=== PATIENT | male | born 1950 | race Caucasian/White ===

== ENCOUNTER 2022-03-17 13:41 | Outpatient (REF) | payer MEDICARE, SELFPAY ==
[2022-03-17 15:44] LABS: Abs Immature Grans 0.03 10^3/uL (0.0-0.06); Absolute Basophil Count 0.07 10^3/uL (0.0-0.2); Absolute Eosinophil Count 0.04 10^3/uL (0.0-0.7); Absolute Lymphocyte Count 1.46 10^3/uL (1.2-3.4); Absolute Monocyte Count 0.51 10^3/uL (0.1-0.8); Absolute Neutrophil Count 6.78 10^3/uL (1.2-6.7); Basophils % 0.8; Eosinophils % 0.4; HCT 47.3 % (40.0-50.0); HGB 15.5 g/dL (13.5-17.5); Immature Grans % 0.3; Lymphocytes % 16.4; MCH 29.8 pg (27.0-33.0); MCHC 32.8 % (32.0-36.0); MCV 91 fL (80-95); MPV 10.8 fL (8.0-11.0); Monocytes % 5.7; Neutrophils % 76.4; Platelet Count 270 10^3/uL (130-400); RBC 5.21 10^6/uL (4.36-5.78); RDW 14.1 % (11.8-14.1); RDW-SD 46.8 fL; WBC 8.89 10^3/uL (4.4-10.8)
[2022-03-17 15:52] LABS: ALT 24 U/L (16-63); AST 30 U/L (15-37); Albumin 4.3 g/dL (3.4-5.0); Alkaline Phosphatase 80 U/L (46-116); Anion Gap 7.4 mmol/L (3-11); BUN 7 mg/dL (7-18); Bilirubin, Total 0.5 mg/dL (0.2-1.0); CO2 29.6 mmol/L (21.0-32.0); CREATININE 0.7 mg/dL (0.70-1.30); Calcium 9.5 mg/dL (8.5-10.1); Calculated LDL 124 mg/dL (<100); Chloride 98 mmol/L (98-107); Cholesterol 200 mg/dL (<200); Estimated GFR 97.29 (mL/min/1.73m2); Glucose 100 mg/dL (74-106); HDL Cholesterol 52 mg/dL (40-60); Potassium 3.8 mmol/L (3.5-5.1); Sodium 135 mmol/L (136-145); Total Protein 8.9 g/dL (6.4-8.2); Triglyceride 124 mg/dL (<150)
[2022-03-17 23:19] LABS: PSA, Screening 0.6 ng/mL (<=6.5)
== END 2022-03-17 13:42 | disposition home or self-care (01) ==
LOC: NCHCN 13:41
PROVIDERS: PCP Physician Assistant Medical; Visit Provider Physician Assistant Medical
DX: I10 Essential (primary) hypertension (principal); Z12.5 Encounter for screening for malignant neoplasm of prostate
CPT/HCPCS: 80053; 80061; 84153; 85025

== ENCOUNTER → 2022-04-10 00:56 | Outpatient (CLI) | payer MEDICARE, SELFPAY ==
--- NOTE | 2022-04-10 10:45 | DI.MRI_ITS ---
Exam(s) MR LUMBAR SPINE WO EXAM: MR LUMBAR SPINE WO CLINICAL HISTORY: LBP WO RADIATION, M54.59. TECHNIQUE: Multiplanar multisequence MRI of the Lumbar spine was performed. COMPARISON: No exams were available for comparison FINDINGS: Bones: The last intervertebral disc space is designated the L5/S1 level for the numbering purpose of this examination. There is a Schmorl's node in the inferior endplate of L2. Small endplate osteoph ytes are seen at several levels of the lumbar spine. Alignment is satisfactory. The signal character istics are unremarkable. Cord: The conus tip ends at the L1 level. It is of normal size and signal intensity. T12-L1: No disc herniations or bulges are present. No central spinal canal or neural foraminal stenos is. L1-2: No focal disc herniation or disc bulge is seen. There are hypertrophic changes seen of the lef t facet joint protruding into the spinal canal. There is minimal narrowing of the spinal canal as a result. No neural foraminal stenosis is seen. L2-3: There is a diffuse disc bulge. There are hypertrophic changes of the facets and ligamentum fla vum. Mild to moderate central spinal canal stenosis results. There is mild bilateral neural foramin al stenosis. L3-4: There is a diffuse disc bulge. There are hypertrophic changes of the facets and ligamentum fla vum. Mild to moderate central spinal canal stenosis is present. There is mild right and moderate le ft neural foraminal stenosis. L4-5: There is a diffuse disc bulge. There is a small central disc herniation. There are degenerati ve changes of the facets and hypertrophy of the ligamentum flavum. This results in mild central spin al canal stenosis. There is mild bilateral neural foraminal stenosis. L5-S1: No disc herniation or bulge is present. There are degenerative changes of the facets. No sig nificant central spinal canal stenosis is present. Moderately severe bilateral neural foraminal sten osis is present. Soft tissues: The visualized SI joints and sacrum are well maintained. The paraspinal soft tissues ar e unremarkable. IMPRESSION: Multilevel degenerative changes in the lumbar spine resulting in central spinal canal and neural fora rian stenosis as described above. DATA REPOSITORY:
== END ==
PROVIDERS: PCP Physician Assistant Medical; Visit Provider Physician Assistant Medical
DX: M47.816 Spondylosis without myelopathy or radiculopathy, lumbar region (principal); M48.061 Spinal stenosis, lumbar region without neurogenic claudication
CPT/HCPCS: 72148

== ENCOUNTER → 2022-04-22 13:27 | Outpatient (BNVA) | payer MEDICARE, SELFPAY | PROVIDERS: PCP Physician Assistant Medical; Referring Provider Physician Assistant Medical; Visit Provider Nurse Practitioner Adult Health | DX: G56.02 Carpal tunnel syndrome, left upper limb (principal) | CPT/HCPCS: 95908; 99203 ==

== ENCOUNTER → 2022-06-25 08:39 | Outpatient (BNVA) | payer MEDICARE, SELFPAY | PROVIDERS: PCP Physician Assistant Medical; Referring Provider Physician Assistant Medical; Visit Provider Student in an Organized Health Care Education/Training Program | DX: G56.02 Carpal tunnel syndrome, left upper limb (principal) | CPT/HCPCS: 99214 ==

== ENCOUNTER 2023-08-22 07:24 | Emergency (ER) | payer MEDICARE, SELFPAY ==
[2023-08-22 07:26] VITALS: BP 219/115; PULSE 92; RESP 16; TEMP 36.6; O2SAT 99
--- NOTE | 2023-08-22 07:30 | DI.RAD_ITS ---
Exam(s) XR KNEE LT 3V AP,LAT,KIRBY EXAM: XR KNEE LT 3V AP,LAT,KIRBY CLINICAL HISTORY: swelling and pain. TECHNIQUE: 2D digital imaging was performed. Three views. COMPARISON: No exams were available for comparison FINDINGS: BONES: No acute fracture is present. No bony destructive lesion is seen. JOINTS: The knee is normally aligned. A joint effusion is seen. The joint spaces are maintained. SOFT TISSUE: Vascular calcifications. Soft tissue edema. IMPRESSION: Joint effusion. No acute bony abnormality. DATA REPOSITORY: RADIATION DOSE DELIVERED:
--- NOTE | 2023-08-22 07:41 | W.ED.GENAD ---
Discharge Plan Disposition Patient Disposition: Home Condition: Stable Discharge Details Clinical Impression: Pain and swelling of left knee Primary Care Provider: Nolan Koroma ED Provider: Mahendra Silva Home Meds and New Rx's Prescriptions: New aspirin [Enteric Coated Aspirin] 81 mg tablet,delayed release (DR/EC) 81 mg PO DAILY Qty: 30 0RF prednisone 20 mg tablet 60 mg PO DAILY 5 Days Qty: 15 0RF Continued magnesium citrate 100 mg tablet 400 mg PO DAILY ginkgo biloba 40 mg tablet 125 mg PO DAILY Rx Instructions: give with meal/snack Kelp 0.15 mg tablet 150 mcg PO DAILY AM potassium chloride 20 mEq packet 50 meq PO DAILY zinc acetate 25 mg (zinc) capsule 50 mg PO DAILY Discharge Instructions Additional Instructions: Your x-ray shows you have degenerative joint disease. Your blood pressure was elevated while you were here, I would recommend having this rechecked with your primary care provider in 1 to 2 weeks. Take the prescriptions as prescribed You should have an ultrasound done to evaluate for potential blood clot If you feel more ill, have severe worsening pain or new symptoms such as chest pain or difficulty breathing return to the emergency department for reevaluation HPI General Mode of arrival: ambulatory. Date/Time Provider Initiated Documentation: 08/22/23 07:25. Limitations to Documentation: no limitations. Information obtained by: patient. History of Present Illness 72 year old M presents to the emergency department with the chief complaint of left knee swelling, described as moderate, Quality is described as aching, Patient extremity. Patient started experiencing this week(s) (1) and it has been constant. No relieving factors improve symptom(s), No exacerbating factors reported . Patient notes no other symptoms.; denies chest pain, fever/chills and shortness of breath. Related Data Home Medications Medication Instructions Recorded Confirmed ginkgo biloba 40 mg tablet 125 mg PO DAILY 04/22/22 08/22/23 magnesium citrate 100 mg tablet 400 mg PO DAILY 04/22/22 08/22/23 potassium chloride 20 mEq oral 50 meq PO DAILY 04/22/22 08/22/23 packet zinc acetate 25 mg (zinc) capsule 50 mg PO DAILY 04/22/22 08/22/23 iodine (kelp) 0.15 mg tablet (Kelp) 150 mcg PO DAILY AM 06/25/22 08/22/23 aspirin 81 mg tablet,delayed 81 mg PO DAILY #30 tabs 08/22/23 release (Enteric Coated Aspirin) prednisone 20 mg tablet 60 mg (3 x 20 mg) PO DAILY 5 days 08/22/23 #15 tabs Previous Rx's Medication Instructions Recorded aspirin 81 mg tablet,delayed 81 mg PO DAILY #30 tabs 08/22/23 release (Enteric Coated Aspirin) prednisone 20 mg tablet 60 mg (3 x 20 mg) PO DAILY 5 days 08/22/23 #15 tabs Allergies Allergy/AdvReac Type Severity Reaction Status Date / Time mold Allergy Severe Chest Unverified 08/22/23 07:32 closes, heavy mucus penicillin V AdvReac Severe Extensive Unverified 08/22/23 07:32 thrush egg AdvReac Intermediate Vomit, Unverified 08/22/23 07:32 diarrhea General Stated Complaint: Orthopedic MIRA: 3 Review of Systems All systems reviewed & are unremarkable except as noted in HPI and below Constitutional Constitutional: Denies chills, Denies fever(s) and Denies weakness Cardiovascular Cardiovascular: Denies chest pain and Denies dyspnea Respiratory Respiratory: Denies cough and Denies dyspnea Gastrointestinal Gastrointestinal: Denies abdominal pain, Denies nausea and Denies vomiting Integumentary/Breasts Skin/Breast: Denies rash Neurologic Neurologic: Denies weakness Exam Const General: no acute distress Orientation: alert [facility] Head: normal to inspection Ears: external ears normal General nose exam: external nose normal Mouth: moist mucous membranes Eyes General: appearance normal, both eyes and all related structures Neck Neck: normal visual inspection Resp Effort & Inspection: normal respiratory effort and able to speak in complete sentences Cardio Rate: regular rate Skin General skin exam: no rashes or lesions noted Neuro General: patient alert and patient oriented x3 Extrem General: full ROM and capillary refill normal Psych Mental Status: mental status grossly normal Course Vital Signs Vital signs: Vital Signs Temperature 36.6 C 08/22/23 07:26 Pulse 92 H 08/22/23 07:26 Respiratory Rate 16 08/22/23 07:26 Blood Pressure 219/115 H 08/22/23 07:26 Pulse Oximetry 99 08/22/23 07:26 Temperature 36.6 C 08/22/23 07:26 Temperature Source Temporal Artery Scan 08/22/23 07:26 Pulse 92 H 08/22/23 07:26 Respiratory Rate 16 08/22/23 07:26 Respiratory Effort Normal, Non-Labored 08/22/23 07:34 Blood Pressure 219/115 H 08/22/23 07:26 Blood Pressure Position Sitting 08/22/23 07:26 Pulse Oximetry 99 08/22/23 07:26 Pain Level 1 08/22/23 07:26 Medical Decision Making 72-year-old male who denies any chronic medical problems comes in with 1 week of left knee and leg swelling. He says he was working a week ago and was on his knees, does not remember any injuries or trauma at that time. Denies any fevers, chills, rash, difficulty breathing, chest pain. He is ambulatory on arrival, his left knee and calf are both swollen. He has full range of motion of the knee and foot and ankle, no erythema or warmth. He has intact distal sensation and pulses. I suspect osteoarthritis versus gout, exam is not consistent with septic joint but will send screening labs including CBC, CMP, CRP and ESR. Will also send D-dimer as we do not have ultrasound capability on Wednesday screen for DVT. Will obtain x-ray as well to evaluate for possible traumatic findings. Patient initially refused blood work but then did consent to having them done, no leukocytosis, ESR and CRP are elevated. D-dimer is significantly elevated. No ultrasound available today. I discussed results with patient, he has clinical decision-making capacity, I did recommend arthrocentesis though my suspicion for septic joint is low which he declined and understands the risks of missing a septic joint including worsening infection and possibly loss of limb. He is willing to accept these risks. I am also recommending that he start anticoagulation but he does not want any thing stronger than an aspirin. Discussed risks of not adequately treated DVT if he has 1 including worsening clot and potentially developing pulmonary embolus which can potentially lead to and permanent disability, and he still does not want to have Lovenox or Eliquis. He is willing to come back to have an ultrasound done so this order has been placed for him. I will also start him on a short course of a steroid for potential gout or other inflammatory arthritis. Return precautions given Differential Diagnosis Differential Diagnosis: Arthritis, gout, DVT Imaging Data Radiologic Study: Attestation: I personally reviewed and interpreted this imaging study as follows: Imaging: X-Ray Radiologist's impression: IMPRESSION: Mild degenerative change and joint effusion. Quality:[facility] Related Social Needs: No Data to Display PFSH All Active Problems (Updated 08/22/23 @ 08:28 by Mahendra Silva MD) Pain and swelling of left knee (Acute) Left carpal tunnel syndrome (Acute) Medical History Carpal tunnel syndrome Elevated blood pressure reading Hypertension Low back pain Social History Smoking/Tobacco Use Status: Former Tobacco Use Smoking risk assessment performed?: Yes Alcohol Intake: current Alcohol Intake frequency: holidays/special occasions only Drug use: Never Substance use type: does not use Housing: house Do you feel safe at home: Yes Do you feel safe in your relationship?: Yes
[2023-08-22 08:21] LABS: Abs Immature Grans 0.01 10^3/uL (0.0-0.06); Absolute Basophil Count 0.06 10^3/uL (0.0-0.2); Absolute Eosinophil Count 0.03 10^3/uL (0.0-0.7); Absolute Lymphocyte Count 0.58 10^3/uL (1.2-3.4); Absolute Monocyte Count 0.69 10^3/uL (0.1-0.8); Absolute Neutrophil Count 4.01 10^3/uL (1.2-6.7); Basophils % 1.1; Eosinophils % 0.6; HCT 39.9 % (40.0-50.0); HGB 13.6 g/dL (13.5-17.5); Immature Grans % 0.2; Lymphocytes % 10.8; MCH 30.2 pg (27.0-33.0); MCHC 34.1 % (32.0-36.0); MCV 89 fL (80-95); MPV 9.8 fL (8.0-11.0); Monocytes % 12.8; Neutrophils % 74.5; Platelet Count 273 10^3/uL (130-400); RBC 4.51 10^6/uL (4.36-5.78); RDW 12.7 % (11.8-14.1); RDW-SD 41.8 fL; WBC 5.38 10^3/uL (4.4-10.8)
[2023-08-22 08:23] VITALS: BP 161/80; PULSE 82; RESP 14; O2SAT 99
[2023-08-22 08:25] LABS: ESR 30 mm/hr (0-20)
--- NOTE | 2023-08-22 08:26 | DI.VRAD_ITS ---
PROCEDURE INFORMATION: Exam: XR Left Knee Exam date and time: 08/22/2023 8:05 AM Age: 72 years old Clinical indication: Other: Swelling and pain TECHNIQUE: Imaging protocol: Radiologic exam of the left knee. Views: 3 views. COMPARISON: No relevant prior studies available. FINDINGS: Bones/joints: Mild degenerative change and joint effusion. No acute bony injury or malalignment. Soft tissues: Calcification at the quadriceps tendon attachment site. Vascular: Vascular calcification. IMPRESSION: Mild degenerative change and joint effusion. Dictated and Authenticated by: Andrey Gómez MD. Ordering:MONIK Mccray MD
[2023-08-22 08:36] LABS: INR 1.1 (0.9-1.1); Prothrombin Time 11.2 sec (9.1-11.1)
[2023-08-22 08:38] LABS: ALT 28 U/L (16-63); AST 25 U/L (15-37); Albumin 3.6 g/dL (3.4-5.0); Alkaline Phosphatase 64 U/L (46-116); Anion Gap 9.8 mmol/L (3-11); BUN 9 mg/dL (7-18); C-Reactive Protein 9.58 mg/dL (<or=0.5); CO2 29.2 mmol/L (21.0-32.0); CREATININE 0.7 mg/dL (0.70-1.30); Chloride 92 mmol/L (98-107); Estimated GFR 96.69 (mL/min/1.73m2); Glucose 108 mg/dL (74-106); Magnesium 2.1 mg/dL (1.8-2.4); Potassium 3.7 mmol/L (3.5-5.1); Sodium 131 mmol/L (136-145)
[2023-08-22 08:56] LABS: D-Dimer 5890 ng/mlFEU (<500)
== END 2023-08-22 09:28 | disposition home or self-care (01) ==
PROVIDERS: Emergency Provider Emergency Medicine; PCP Physician Assistant Medical
DX: R22.43 Localized swelling, mass and lump, lower limb, bilateral (principal); M25.462 Effusion, left knee; I10 Essential (primary) hypertension; Z79.82 Long term (current) use of aspirin
CPT/HCPCS: 36415; 73562; 80053; 85652; 99284; 83735; 85025; 85379; 85610; 85730; 86140; 99283

== ENCOUNTER 2023-11-17 19:23 | Outpatient (REF) | payer MEDICARE, SELFPAY ==
[2023-11-17 20:24] LABS: Anion Gap 3.5 mmol/L (3-11); BUN 13 mg/dL (7-18); CO2 31.5 mmol/L (21.0-32.0); CREATININE 0.7 mg/dL (0.70-1.30); Calcium 8.8 mg/dL (8.5-10.1); Chloride 105 mmol/L (98-107); Estimated GFR 96.69 (mL/min/1.73m2); FREE T4 0.94 ng/dL (0.76-1.46); Glucose 108 mg/dL (74-106); Potassium 4.6 mmol/L (3.5-5.1); Sodium 140 mmol/L (136-145); TSH 0.61 uIU/Ml (0.36-3.74)
== END 2023-11-17 19:24 | disposition home or self-care (01) ==
LOC: NCHCN 19:23
PROVIDERS: PCP Physician Assistant Medical; Visit Provider Physician Assistant Medical
DX: E87.1 Hypo-osmolality and hyponatremia (principal); R94.6 Abnormal results of thyroid function studies
CPT/HCPCS: 80048; 84439; 84443

== ENCOUNTER 2023-12-10 16:56 | Outpatient (REF) | payer MEDICARE, SELFPAY ==
[2023-12-09 11:26] LABS: Uric Acid 4.3 mg/dL (3.5-7.2)
== END 2023-12-10 16:57 | disposition home or self-care (01) ==
LOC: NCHCN 16:56
PROVIDERS: PCP Physician Assistant Medical; Visit Provider Physician Assistant Medical
DX: I10 Essential (primary) hypertension (principal)
CPT/HCPCS: 84550

== ENCOUNTER 2024-12-04 08:10 | Day surgery (SDC) | payer MEDICARE, MEDICAID, SELFPAY ==
[2024-12-04] VITALS (11 sets, daily range): BP systolic 146–175; BP diastolic 61–121; PULSE 49–78; RESP 16–24; TEMP 36.2–36.8; O2SAT 97–100; BMI 22.3
[2024-12-04] MEDS: Lactated Ringers 1,000 ML 50 ML IV (09:28)
--- NOTE | 2024-12-04 10:05 | W.ANESPRE ---
General Info Date of Service Date Performed: 12/04/24 Height: 5 ft 8 in Weight: 66.6 kg Body Mass Index (BMI): 22.3 Surgical Procedure: Operation Date: 12/04/24 10:25 Proposed Procedure Side Surgeon p Micro Laryngoscopy w/ Rt Laryngeal Excision Biopsy Al Bartholomew MD Meds Allergies and Home Medications Allergies Allergy/AdvReac Type Severity Reaction Status Date / Time mold Allergy Severe Chest Verified 12/04/24 09:07 closes, heavy mucus penicillin V AdvReac Severe Extensive Verified 12/04/24 09:07 thrush egg AdvReac Intermediate Vomit, Verified 12/04/24 09:07 diarrhea Home Medication ?Medication ?Instructions ?Recorded ginkgo biloba 40 mg tablet 125 mg PO DAILY 04/22/22 magnesium citrate 100 mg tablet 400 mg PO DAILY 04/22/22 zinc acetate 25 mg (zinc) capsule 50 mg PO DAILY 04/22/22 L.acidophilus,gasseri,rhamnosus-B.bifidum,long 1 cap PO DAILY 10/03/24 3 billion cell capsule (Digestive Probiotic) Moises's wort 300 mg tablet 300 mg PO DAILY 10/03/24 cetirizine 10 mg tablet 10 mg PO DAILY PRN 10/03/24 coenzyme Q10 60 mg capsule 60 mg PO TID 10/03/24 multivitamin with minerals-folic 1 tab PO DAILY 10/03/24 acid 400 mcg-lycopene 370 mcg tablet (One-A-Day Men's 50 Plus) omega 5-ugz-vqx-fish oil 1,000 mg 1 cap PO DAILY 10/03/24 (120 mg-180 mg) capsule (Fish Oil) quercetin 500 mg capsule 500 mg PO DAILY 10/03/24 vitamin K2 100 mcg capsule 100 mcg PO DAILY 10/03/24 uric acid flush PO 11/15/24 Current Visit Medications: Current Medications Generic Name Dose Route Start Last Admin Trade Name Freq PRN Reason Stop Dose Admin Ringer's Solution 1,000 mls @ 50 mls/hr 12/04/24 06:00 12/04/24 09:28 IV 12/04/24 23:59 50 mls/hr INFUSION LIANNE Administration IV Miscellaneous Supplies 1 each 12/04/24 06:00 Iv Access IV 12/04/24 23:59 DIRECTED LIANNE Sodium Chloride 0 ml 12/04/24 06:00 Normal Saline Flush 10 Ml Syr IV 12/04/24 23:59 PRN PRN Sodium Chloride 0 ml 12/04/24 06:00 Normal Saline 10 Ml Vial IJ 12/04/24 23:59 DIRECTED PRN Sterile Water 0 ml 12/04/24 06:00 Water,Injection,Sterile 10 Ml Vial IJ 12/04/24 23:59 DIRECTED PRN PFSH Active Problems Active Problems: Problem Status Onset Code Hoarseness or changing voice Acute R49.9 Left carpal tunnel syndrome Acute G56.02 Medical History Medical History Spinal stenosis Follicular cyst of skin and subcutaneous tissue Elevated blood pressure reading Low back pain Carpal tunnel syndrome Hypertension Tobacco Smoking/Tobacco Use Status: Former Tobacco Use Alcohol Alcohol Intake: current Alcohol intake frequency: holidays/special occasions only Substance Use Substance use: Never Substance use type: does not use Vital Signs and Lab Results Vital Signs Most Recent Vital Signs in EMR: Most Recent Vital Signs Temp Pulse Resp Pulse Ox 36.2 C L 78 16 98 12/04/24 08:45 12/04/24 08:45 12/04/24 08:45 12/04/24 08:45 Anesthesia Assessment and Plan Anesthesia History Personal History: No History of Anesthesia Complications Family History: No Family History of Anesthesia Complications Exercise Tolerance Exercise Tolerance: Metabolic Equivalents>4 Cardiac & Pulmonary Exam Cardiac Exam: Normal S1/S2 Heart Sounds Pulmonary Exam: Clear Bilateral Breath Sounds Implantable Cardiac Device Does patient have a Pacemaker or an ICD?: No Airway Exam Known Difficult Airway: No Mallampati Class: 3 Mouth Opening: Narrow (< 3cm) Thyromental Distance: Less than 3 cm Neck Range of Motion: Limited ROM Neck Circumference: Normal Teeth Condition: Normal Dentition (Multiple missing teeth. denies any loose. ) ASA Classification ASA Score: ASA 3 Emergency Case?: No NPO Status NPO Status: NPO Clears >2 hours, Solids >8 hours Anesthesia Plan Resuscitation Status: Full Code Anesthesia Technique: General Anesthesia Airway Planned: Endotracheal Tube Monitors Used: Standard Monitors Preoperative Comments:: 74 yo male for micro laryngoscopy. Sig PMHx: HTN (untreated. Multiple BPs in the system >200/100. States that he has talked with his PCP about this. Checks his BP at home once a week or so and today he was ~170/70 at home), TIA (11/23, treated at [facility], 3 weeks of Plavix, was also written for carvedilol - which he is no longer taking). ECHO: LVEF 60-65%, normal LV size. ECG: LVH, sinus. Discussed his BP at length and that he needs to follow up with his PCP about BP control. He denies chest pain or shortness breath (at rest or with exertion).
--- NOTE | 2024-12-04 10:15 | PDOC.DSDIS_ITS ---
Date of service: 12/04/24 Discharge Plan Disposition Patient Disposition: Home Condition: Good Discharge Details Reason For Visit: Microlaryngoscopy with biopsy Attending Provider: Al Bartholomew Primary Care Provider: Nolan Koroma Home Meds and New Rx's Prescriptions: No Action magnesium citrate 100 mg tablet 400 mg PO DAILY ginkgo biloba 40 mg tablet 125 mg PO DAILY Rx Instructions: give with meal/snack uric acid flush PO zinc acetate 25 mg (zinc) capsule 50 mg PO DAILY cetirizine 10 mg tablet 10 mg PO DAILY PRN omega 2-wvf-rpw-fish oil [Fish Oil] 1,000 (120-180) mg capsule 1 cap PO DAILY One-A-Day Men's 50 Plus 400-370 mcg tablet 1 tab PO DAILY Pomeroy's wort 300 mg tablet 300 mg PO DAILY quercetin 500 mg capsule 500 mg PO DAILY coenzyme Q10 60 mg capsule 60 mg PO TID vitamin K2 100 mcg capsule 100 mcg PO DAILY Digestive Probiotic 3 billion cell capsule 1 cap PO DAILY Discharge Instructions Additional Instructions: My cell phone number is [phone]. Please call with any questions or concerns. If you are unable to reach me and you feel it is an emergency, please go to the emergency room or call 911 Avoid shouting, whispering, excessive voice use for the next Keep hydrated No driving for 72 hours Avoid throat clearing or aggressive coughing Call my office if you do not hear from me with regard to pathology within 1 week ([phone]) Tylenol or ibuprofen for pain May shower ad rosita. Referrals: Al Bartholomew MD [ [facility] STAFF PHYSICIAN, ENT Surgical] Referral Note: 1 month
--- NOTE | 2024-12-04 10:19 | W.PM.OP ---
Operative Note Operative Note PRE-OP DIAGNOSIS: Right ventricular fold lesion, vocal aberration POST-OP DIAGNOSIS: same PROCEDURE: Microlaryngoscopy with biopsy SURGEON: Al Bartholomew ANESTHESIA TYPE: General LMA/ETT Refer to Anesthesia Record ESTIMATED BLOOD LOSS: 0 PATHOLOGY: other (Right ventricular lesion) COMPLICATIONS: None Patient was transported to: PACU Patient's condition: stable Indications: The patient has noted some vocal aberration. Examination in the office found a mass in his right ventricle, resting against the right vocal cord. Options were explained to the patient including second opinion, watchful waiting, or microlaryngoscopy with biopsy. He elected to undergo the latter. Risks were reviewed once again including voice aberration. Consent was reviewed. H&P was reviewed. He still wished to proceed. Findings: Right ventricular cystic lesion, not involving Procedure Description: After obtaining an adequate level of general endotracheal anesthesia the patient was positioned in supine position and prepped and draped in appropriate fashion. A Holinger laryngoscope was carefully introduced into the oral cavity and carefully advanced to the larynx, taking care to avoid trauma to the dentition. Once the vocal cords were well-visualized, the Holinger laryngoscope was placed into suspension and the operating microscope with a 400 mm lens was advanced into position and using the operating microscope, the mass within the right ventricle examined. It appeared translucent and cystic. As such, it was carefully grasped with a set of upgoing cups, pulled medially, and marsupialized, taking a large portion of the medial aspect of the cyst. Care was taken not to damage the vocal cords. Once the medial aspect of the cyst had been removed, with expression of thick yellow mucoid debris, there was no obvious residual cyst. There were no secondary masses. The vocal cords appeared otherwise unremarkable. After ensuring adequate hemostasis, the laryngoscope was taken out of suspension, and carefully withdrawn. Dentition was inspected revealing no damage to the teeth. The specimen was placed in formalin and sent to pathology. Date of Procedure: 12/04/24
--- NOTE | 2024-12-04 10:55 | LAR_PTH ---
PATIENT: Cesar Justice JR LOC: [facility] U#:[id number] AGE/SX: 74/M ROOM: RE12/04/[address]: Al Bartholomew MD : [id number] BED: DIS: 12/04/2024 SPEC #: [id number] RECD: 12/04/24 12:59 STATUS: ALFREDO REQ #: [id number] WILLIAM: 12/04/24 10:[address]: Al Bartholomew DEPT: Surgical Specimen RECD BY: Maricel Carias ENTERED: 12/04/24 13:01 SP TYPE: MOISES GIBBONS DR: Nolan Koroma Tissues: 1 - LARYNX BIOPSY Procedures: GROSS AND MICRO LEVEL 4 Comments: [id number]
--- NOTE | 2024-12-04 11:22 | W.ANESPOSTOP ---
Postoperative Evaluation Date, Time and Location Date Performed: 12/04/24 Time Performed: 11:22 Patient Location: PACU Vital Signs Most Recent Imported Vital Signs: Most Recent Vital Signs Temp Pulse Resp Pulse Ox 36.8 C 78 16 98 12/04/24 11:10 12/04/24 08:45 12/04/24 08:45 12/04/24 08:45 Pain Score Most Recent Pain Score: Most Recent Pain Score Pain Level 0 12/04/24 11:10 Assessment Mental Status: Awake (Alert & Oriented to Patient Baseline) Airway and Respiratory Function: Patent airway with normal (patient baseline) respiratory exam Cardiovascular Function: Hemodynamically Stable Hydration Status: Adequately Hydrated Nausea & Vomiting: No Nausea or Vomiting Pain: Pt. Denies Any Pain Peripheral Nerve Block: Patient did not receive a nerve block
--- NOTE | 2024-12-04 11:25 | W.ANESPOSTOP ---
Postoperative Evaluation Date, Time and Location Date Performed: 12/04/24 Time Performed: 11:26 Patient Location: PACU Vital Signs Most Recent Imported Vital Signs: Most Recent Vital Signs Temp Pulse Resp Pulse Ox 36.8 C 78 16 98 12/04/24 11:10 12/04/24 08:45 12/04/24 08:45 12/04/24 08:45 Temp Pulse Resp Pulse Ox 36.8 C 78 16 98 12/04/24 11:10 12/04/24 08:45 12/04/24 08:45 12/04/24 08:45 Most Recent Vital Signs Temp Pulse Resp Pulse Ox 36.8 C 78 16 98 12/04/24 11:10 12/04/24 08:45 12/04/24 08:45 12/04/24 08:45 Pain Score Most Recent Pain Score: Most Recent Pain Score Pain Level 0 12/04/24 11:10 Assessment Mental Status: Awake (Alert & Oriented to Patient Baseline) Airway and Respiratory Function: Patent airway with normal (patient baseline) respiratory exam Cardiovascular Function: Hemodynamically Stable Hydration Status: Adequately Hydrated Nausea & Vomiting: No Nausea or Vomiting Pain: Pt. Denies Any Pain Peripheral Nerve Block: Patient did not receive a nerve block
== END 2024-12-04 12:45 | disposition home or self-care (01) ==
PROVIDERS: PCP Physician Assistant Medical; Visit Provider Otolaryngology
PROC: 0CJS8ZZ Inspection of Larynx, Via Natural or Artificial Opening Endoscopic (ICD-10-PCS; CPT 31575; principal; 2024-12-04 10:15)
DX: D14.1 Benign neoplasm of larynx (principal); J38.7 Other diseases of larynx; R49.8 Other voice and resonance disorders; I10 Essential (primary) hypertension
CPT/HCPCS: 31578; 88305; J1100; J2003; J2371; J2405; J2704; J3010

== ENCOUNTER 2025-04-09 13:15 | Outpatient (REF) | payer MEDICARE, MEDICAID, SELFPAY ==
[2025-04-09 15:21] LABS: Glucose Negative (Negative)
[2025-04-09 15:29] LABS: C & S Indicated? No; RBC 0-2 HPF (0-2); WBC 0-2 HPF (0-5)
[2025-04-09 15:41] LABS: ALT 40 U/L (10-49); AST 39 U/L (<34); Albumin 4.6 g/dL (3.2-5.0); Alkaline Phosphatase 75 U/L (46-116); Anion Gap 7.7 mmol/L (3-11); BUN 12 mg/dL (9-23); Bilirubin, Total 0.70 mg/dL (0.2-1.2); CO2 33.3 mmol/L (20.0-31.0); Calcium 9.4 mg/dL (8.3-10.6); Chloride 103 mmol/L (98-107); Cholesterol 164 mg/dL (<200); Glucose 93 mg/dL (74-106); HDL Cholesterol 48 mg/dL (>40); Potassium 4.4 mmol/L (3.5-5.1); Sodium 144 mmol/L (136-145); Total Protein 7.5 g/dL (5.7-8.2)
== END 2025-04-09 13:16 | disposition home or self-care (01) ==
LOC: NCHCN 13:15
PROVIDERS: PCP Physician Assistant Medical; Visit Provider Nurse Practitioner Family
DX: I10 Essential (primary) hypertension (principal)
CPT/HCPCS: 80053; 80061; 81003; 81015; 82043; 82570